=== PATIENT | female | born 1950 | race Caucasian/White ===

== ENCOUNTER → 2024-03-14 09:23 | Outpatient (REF) | payer OTHER, SELFPAY | LOC: RAD 09:23 | PROVIDERS: ATTENDING PHYSICIAN Physician Assistant Medical | DX: R06.02 Shortness of breath (principal); I82.501 Chronic embolism and thrombosis of unspecified deep veins of right lower extremity; I10 Essential (primary) hypertension | CPT/HCPCS: 93970 ==

== ENCOUNTER 2024-10-27 04:54 | Emergency (ER) | payer OTHER, SELFPAY ==
[2024-10-27 04:57] VITALS: BP 179/82
[2024-10-27 05:22] LABS: % Eosinophils 1.9 % (0-6); % Immature Granulocytes 0.3 % (0-0.5); % Lymphocytes 37.2 % (20.5-51.1); % Monocytes 9.1 % (1.7-9.3); % Neutrophils 50.5 % (42.2-75.2); Absolute Basophils 0.1 10^3/uL (0-0.2); Absolute Eosinophils 0.1 10^3/uL (0-0.7); Absolute Lymphocytes 2.5 10^3/uL (1.2-3.4); Absolute Monocytes 0.6 10^3/uL (0.1-0.6); Absolute Neutrophils 3.4 10^3/uL (1.4-6.5); Hematocrit 40.1 % (37.0-47.0); Hemoglobin 13.9 g/dL (12.0-16.0); Mean Corp Hgb Conc. 34.7 g/dL (33.0-37.0); Mean Corpuscular Volume 92.2 fL (81.0-99.0); Mean Platelet Volume 9.4 fL (7.4-10.4); Nucleated Red Blood Cells % 0 %; Platelet Count 201 10^3/uL (130-400); Red Blood Cell Count 4.35 10^6/uL (4.20-5.40); Red Cell Dist. Width 12.6 % (11.5-14.5); White Blood Cell Count 6.7 10^3/uL (4.8-10.8)
[2024-10-27 05:50] LABS: ALT (SGPT) 15 U/L (0-35); AST (SGOT) 20 U/L (14-36); Albumin 4.1 g/dl (3.5-5.0); Alkaline Phosphatase 88 U/L (38-126); Blood Urea Nitrogen 21 mg/dl (7-17); Calcium 10.3 mg/dl (8.4-10.2); Chloride 106 mmol/L (98-107); Lipase 79 U/L (23-300); Potassium 4.1 mmol/L (3.5-5.1); Sodium 139 mmol/L (135-145); Total Bilirubin 0.8 mg/dl (0.2-1.3); eGFR > 60.00
[2024-10-27 06:00] LABS: Carbon Dioxide 23 mmol/L (22-30); Glucose 122 mg/dl (70-99)
[2024-10-27 06:51] VITALS: BP 177/77
[2024-10-27 07:00] VITALS: BP 173/80
[2024-10-27 07:06] VITALS: BP 165/71
--- NOTE | 2024-10-27 07:30 | ED.GENMED ---
History of Present Illness
<ELLY Londono - Last Filed: 10/27/24 09:51>
General
Chief Complaint: Abdominal Pain
Source: patient
Exam Limitations: none
Time Seen by Provider: 10/27/24 07:10
History of Present Illness
History of Present Illness:
Patient is a 74 old female who presents to the ER complaining of upper abdominal pain. She reports since Wednesday for the past 4 days she has had upper abdominal pain. She has nauseous. She feels bloated and swollen. She has no appetite. She has
been moving her bowels normally. She has been urinating normally. She does have some burning in her epigastric area with this. She denies any history of reflux. 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 She
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 She is told in the past that she has had stage III kidney disease however has had CAT scans with IV contrast in the past and her machine set up operator is fine
with this. She has good kidney function on labs.
Phy Exam
<ELLY Londono - Last Filed: 10/27/24 09:51>
General Physical Exam
General Presentation: no apparent distress
General age: appears stated age
General Skin: warm and dry
General Habitus: obese
General Mental: alert
General Hydration: appears well hydrated
Cardiovascular Exam
Cardiovascular Exam: no murmur and normal peripheral pulses
Pulmonary Exam
Pulmonary Exam: lungs clear and no respiratory distress
Gastrointestinal Exam
Gastrointestinal Exam: soft and other (mild epigastric tenderness )
Neurological Exam
Neurological Exam: alert and oriented x3
Musculoskeletal Exam
Musculoskeletal Exam: full ROM
Skin Exam
Skin Exam: normal color and warm/dry
Psychiatric Exam
Psychiatric Exam: normal mood/affect
Course
<ELLY Londono - Last Filed: 10/27/24 09:51>
Orders/Labs/Results
Orders:
Orders
10/27/24 05:15
Complete Blood Count/With Diff Urgent
Comprehensive Metabolic Panel Urgent
Lipase Urgent
10/27/24 07:10
EKG [Electrocardiogram (*1)] Urgent
Reason for Study: Abdominal Pain
EKG- Treatment ONCE
10/27/24 07:31
Urinalysis Reflex To Culture Urgent
Date Specimen was Collected: 10/27/24
Time Specimen was Collected: 07:29
Urine Microscopic Reflex Cult Urgent
10/27/24 07:39
CT Abd/pelvis W Iv Cont Urgent
Comment:
Reason For Exam: abd pain /bloating/nausea
0.9% Sodium Chloride 1000 ml [Nss] 1,000 ml IV BOLUS
10/27/24 08:05
Lactic Acid Urgent
10/27/24 09:45
Amoxicillin 875 mg/Clav 125 mg [Augmentin 875 mg/125 mg] 1 tablet PO NOW STA
Abnormal Lab Results
10/27/24 10/27/24
05:15 07:31
MCH 32.0 H pg
(27.0-31.0)
BUN 21 H mg/dl
(7-17)
Glucose 122 H mg/dl
(70-99)
Calcium 10.3 H mg/dl
(8.4-10.2)
Urine Albumin (Reflex) 1+ A
(Neg - Trace)
10/27/24 05:15
10/27/24 05:15
Vital Signs
Initial and Last Documented VS:
Initial Vital Signs
Temp Pulse Resp BP Pulse Ox
98.4 F 93 20 179/82 97
10/27/24 04:57 10/27/24 04:57 10/27/24 04:57 10/27/24 04:57 10/27/24 04:57
Last Documented Vital Signs
Temp Pulse Resp BP Pulse Ox
98.4 F 72 23 164/74 96
10/27/24 04:57 10/27/24 09:15 10/27/24 09:15 10/27/24 09:09 10/27/24 09:15
Transmission Systems Operator consulted with Physician
Transmission Systems Operator consulted with physician?: Yes
Name of Physician Consulted: Leobardo
<Yasir Booth, DO - Last Filed: 10/27/24 09:49>
Orders/Labs/Results
Orders:
Orders
10/27/24 05:15
Complete Blood Count/With Diff Urgent
Comprehensive Metabolic Panel Urgent
Lipase Urgent
10/27/24 07:10
EKG [Electrocardiogram (*1)] Urgent
Reason for Study: Abdominal Pain
EKG- Treatment ONCE
10/27/24 07:31
Urinalysis Reflex To Culture Urgent
Date Specimen was Collected: 10/27/24
Time Specimen was Collected: 07:29
Urine Microscopic Reflex Cult Urgent
10/27/24 07:39
CT Abd/pelvis W Iv Cont Urgent
Comment:
Reason For Exam: abd pain /bloating/nausea
0.9% Sodium Chloride 1000 ml [Nss] 1,000 ml IV BOLUS
10/27/24 08:05
Lactic Acid Urgent
10/27/24 09:45
Amoxicillin 875 mg/Clav 125 mg [Augmentin 875 mg/125 mg] 1 tablet PO NOW STA
Abnormal Lab Results
10/27/24 10/27/24
05:15 07:31
MCH 32.0 H pg
(27.0-31.0)
BUN 21 H mg/dl
(7-17)
Glucose 122 H mg/dl
(70-99)
Calcium 10.3 H mg/dl
(8.4-10.2)
Urine Albumin (Reflex) 1+ A
(Neg - Trace)
10/27/24 05:15
10/27/24 05:15
Vital Signs
Initial and Last Documented VS:
Initial Vital Signs
Temp Pulse Resp BP Pulse Ox
98.4 F 93 20 179/82 97
10/27/24 04:57 10/27/24 04:57 10/27/24 04:57 10/27/24 04:57 10/27/24 04:57
Last Documented Vital Signs
Temp Pulse Resp BP Pulse Ox
98.4 F 72 23 164/74 96
10/27/24 04:57 10/27/24 09:15 10/27/24 09:15 10/27/24 09:09 10/27/24 09:15
<ELLY Londono - Last Filed: 10/27/24 09:51>
MDM/Problems Addressed
Differential Diagnosis Includes:
not limited to reflux less likely bile ductal stone, viral syndrome, colitis,
MDM/Problems Addressed:
As documented patient is a 74-year female who complains of upper abdominal bloating decreased appetite nausea. She has had this for the past several days. She presents awake alert no acute distress she is going away on a cruise in 2 weeks and
presented to the ER for evaluation. She denies any fever chills diarrhea. She does report she has' a problem with celiac artery.' But is not exactly sure what the problem is. She is afebrile nontoxic normal lactic normal labs. Very
nontoxic-appearing minimal epigastric tenderness
CAT scan shows mild wall thickening along the descending and proximal sigmoid colon favored represent mild colitis there is a 2.8 cm left adnexal cystic lesion. I did review this with patient she is aware of this and follows with oncology they are
just monitoring this but do not feel that it is cancerous.
Pt eval by DR Leobardo winn for d/c home.
<ELLY Londono - Last Filed: 10/27/24 09:51>
*Radiology
Radiology exam reviewed: radiology read reviewed (CAT scan shows mild wall thickening along the descending and proximal sigmoid colon favored to represent colitis incidental 2.8 cm left adnexal cystic lesion which will need follow-up)
*Pulse Oximetry
Patient hypoxic: no
*Critical Care Note
Total Time (30-74mins, 75-104mins- exclusive of procedures): Not Applicable
ED Attending Note
<ELLY Londono - Last Filed: 10/27/24 09:51>
-
Portions of this chart may have been created with voice recognition software.� Occasional wrong word or��sound alike� substitutions may have occurred due to the inherent limitations of voice recognition software.
<Yasir Booth DO - Last Filed: 10/27/24 09:49>
ED Attending Note
Patient seen and examined by attending physician: Yes
I performed the substantive portion of visit, reviewed & personally made and approve the management plan that is documented in note by myself or ANNI.: Yes
ED Attending Note:
I have seen and evaluated the patient with a [id number] encounter. I have spoken to the advance practicer provider and involved in the medical history, the physical exam, medical decision making.
Evaluation and management service: agree unless noted differently below.
Results interpretation: agree unless noted differently below.
Focused HPI: 74-year-old female presenting with vague abdominal pain. Symptoms are worse when she eats. Patient is more concerned that her symptoms could be related to celiac artery disease. Patient has had imaging the past showing stenosis of
the celiac artery.
Physical exam: Sitting in bed comfortably. Abdomen soft. No rebound
Medical Decision Making: CT shows evidence of mild colitis. Will start Augmentin and discussed the importance of GI follow-up. Although she is worried about this being related to her celiac artery, the colon is not supplied by the celiac artery.
Regardless, lactic acid within normal limits.
Discharge Plan
Departure
Patient Disposition: Home (Routine Discharge)
Date of Disposition: 10/27/24
Time of Disposition: 09:46
Patient with high blood pressure during this ER visit?: Yes
Condition: Fair
Covid-19: Not Applicable
Discharge Problem:
Colitis
Instructions: Colitis - Discharge instructions, BLOOD PRESSURE
Prescriptions:
New
amoxicillin-pot clavulanate 875-125 mg tablet
1 tab PO BID Qty: 14 0RF
Referrals:
Frank Marie CRNP [Family Provider] -
Activity Restrictions/Additional Instructions:
As discussed bland diet. A prescription for Augmentin was sent to pharmacy take as directed. Please follow closely with your family doctor and GI doctor for further reevaluation of your symptoms. As discussed your labs are unremarkable. Your CAT
scan does show some findings consistent with colitis. Return her to the if any worsening of symptoms. Continue to follow-up with your specialist for the adnexal cystic lesion. Return to the ER for any worsening of symptoms include increased pain
nausea vomiting fever chills
Interventions
Interventions:
*Risk Screen - Suicide Last Done: 10/27/24 04:57
*General Assessment Last Done: 10/27/24 07:33
*ED COVID-19 Vaccine History Last Done: 10/27/24 07:33
BF-Fcabtt-Kvtnrkanek Assessment Last Done: 10/27/24 07:33
Discharge Date and Time
Print Language: GU[place]AL[place]
[2024-10-27 08:25] LABS: Urine Albumin 1+ (Neg - Trace); Urine Bilirubin Negative (Negative); Urine Character Clear (Clear); Urine Color Yellow; Urine Glucose Negative (Negative); Urine Ketone Negative (Negative); Urine Leukocyte Negative (Negative); Urine Nitrite Negative (Negative); Urine Occult Blood Negative (Negative); Urine Specific Gravity 1.015 (<1.030); Urine Urobilinogen Negative (Neg - 1+)
[2024-10-27 08:56] LABS: Lactic Acid 0.9 mmol/L (0.7-2.0)
[2024-10-27 09:09] VITALS: BP 164/74
[2024-10-27] MEDS: NSS 1000 IV (09:15)
[2024-10-27 10:08] LABS: Urine Amorphous Seen
[2024-10-27 10:09] LABS: Urine Red Blood Cell 0-2 /HPF (0-2); Urine White Cell 0-2 /HPF (0-5)
== END 2024-10-27 10:12 | disposition home or self-care (01) ==
LOC: EMR 04:54
PROVIDERS: Nurse Practitioner; Student in an Organized Health Care Education/Training Program; EMERGENCY PHYSICIAN Student in an Organized Health Care Education/Training Program; FAMILY PHYSICIAN Nurse Practitioner Family
DX: K52.9 Noninfective gastroenteritis and colitis, unspecified (principal); E66.9 Obesity, unspecified
CPT/HCPCS: 99284; 96360; 74177; 80053; 81003; 81015; 83605; 83690; 85025; 93005; Q9967

== ENCOUNTER 2025-01-25 06:30 | Day surgery (SDC) | payer OTHER, SELFPAY | END 2025-01-25 14:50 | disposition home or self-care (01) | LOC: GI 06:30 | PROVIDERS: ATTENDING PHYSICIAN Internal Medicine Gastroenterology | DX: R12 Heartburn (principal); K31.89 Other diseases of stomach and duodenum; K29.50 Unspecified chronic gastritis without bleeding | CPT/HCPCS: 43239; 88305; 88342 ==

== ENCOUNTER 2025-07-09 21:15 | Emergency (ER) | payer OTHER, SELFPAY ==
[2025-07-09 21:18] VITALS: BP 190/92
[2025-07-09 23:15] VITALS: BP 132/53
[2025-07-09 23:27] LABS: Hematocrit 35.5 % (37.0-47.0); Hemoglobin 11.8 g/dL (12.0-16.0); Mean Corp Hgb Conc. 33.2 g/dL (33.0-37.0); Mean Corpuscular Volume 93.7 fL (81.0-99.0); Platelet Count 206 10^3/uL (130-400); Red Cell Dist. Width 12.7 % (11.5-14.5)
[2025-07-09 23:43] LABS: ALT (SGPT) 18 U/L (0-35); AST (SGOT) 20 U/L (14-36); Albumin 3.5 g/dl (3.5-5.0); Alkaline Phosphatase 73 U/L (38-126); Blood Urea Nitrogen 23 mg/dl (7-17); Calcium 9.3 mg/dl (8.4-10.2); Carbon Dioxide 28 mmol/L (22-30); Chloride 109 mmol/L (98-107); Glucose 110 mg/dl (70-99); Potassium 3.7 mmol/L (3.5-5.1); Sodium 139 mmol/L (135-145); Total Protein 6.2 g/dl (6.3-8.2); eGFR 52.08
[2025-07-10] VITALS: BP 134/63
--- NOTE | 2025-07-10 00:34 | ED.GENMED ---
History of Present Illness
General
Chief Complaint: DVT/Possible Blood Clot
Time Seen by Provider: 07/09/25 22:32
History of Present Illness
History of Present Illness:
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 She is
able to ambulate with slight discomfort. She also reports dyspnea on exertion that was noted upon walking into the ER. Denies chest pain, fever, chills, sweats. Did have some coughing a week ago but this is since resolved. No nausea vomiting or
diarrhea.
Review of Systems
Review of Systems
Allergies reviewed?: Yes
All Other Systems: ROS reviewed and negative except as documented in HPI and ROS
Phy Exam
Physical Exam
Physical Exam:
GEN: Well appearing, NAD, WDWN
HEENT: Oral mucosa moist, no scleral icterus
Cardiac: Regular rate and rhythm, no murmur
Lung: No respiratory distress, no tachypnea, lungs clear to auscultation bilaterally
MSK: Moderate edema of the right lower extremity from the knee to the ankle, nontender to palpation, no erythema. Strong right dorsalis pedis pulse
Skin: Good color, no pallor or jaundice, no rashes
Neuro: AO x3, moves all extremities freely
Psych: Calm, cooperative
Course
Orders/Labs/Results
Orders:
Orders
07/09/25 21:21
US Legs, Right [US Periph Venous LOWER Ext RT] Urgent
Comment:
Reason For Exam: RLE pain and swelling
07/09/25 22:51
CR Chest - 2 Views Urgent
Comment:
Reason For Exam: SOB/WEST
07/09/25 23:08
Complete Blood Count/No Diff Urgent
Comprehensive Metabolic Panel Urgent
NT-proBNP Urgent
07/10/25 00:10
CT Chest W/o Iv Contrast Urgent
Comment:
Reason For Exam: RLL abnormality on CXR
Abnormal Lab Results
07/09/25
23:08
RBC 3.79 L 10^6/uL
(4.20-5.40)
Hgb 11.8 L g/dL
(12.0-16.0)
Hct 35.5 L %
(37.0-47.0)
MCH 31.1 H pg
(27.0-31.0)
Chloride 109 H mmol/L
(98-107)
BUN 23 H mg/dl
(7-17)
Creatinine 1.1 H mg/dL
(0.6-1.0)
Glucose 110 H mg/dl
(70-99)
Total Protein 6.2 L g/dl
(6.3-8.2)
07/09/25 23:08
07/09/25 23:08
Vital Signs
Initial and Last Documented VS:
Initial Vital Signs
Temp Pulse Resp BP Pulse Ox
97.8 F 104 16 190/92 98
07/09/25 21:18 07/09/25 21:18 07/09/25 21:18 07/09/25 21:18 07/09/25 21:18
Last Documented Vital Signs
Temp Pulse Resp BP Pulse Ox
97.8 F 81 18 134/63 97
07/09/25 21:18 07/09/25 23:15 07/09/25 23:15 07/10/25 00:00 07/10/25 00:35
*Pulse Oximetry
SaO2: 97
Oxygen Mode of Delivery: Room air
ED Attending Note
-
Portions of this chart may have been created with voice recognition software.� Occasional wrong word or��sound alike� substitutions may have occurred due to the inherent limitations of voice recognition software.
Discharge Plan
Departure
Discharge Problem:
Venous insufficiency
Instructions: Swelling
Prescriptions:
No Action
amoxicillin-pot clavulanate 875-125 mg tablet
1 tab PO BID Qty: 14 0RF
Referrals:
Frank Marie CRNP [Family Provider, Family Practice]
Activity Restrictions/Additional Instructions:
Elevate legs and wrap using an FABIO wrap to diminish swelling
Interventions
Interventions:
*Risk Screen - Suicide Last Done: 07/09/25 21:18
*General Assessment Last Done: 07/09/25 23:04
*Neglect/Abuse Screening Last Done: 07/09/25 23:04
*ED- Fall Risk Assessment Last Done: 07/09/25 23:04
*ED COVID-19 Vaccine History Last Done: 07/09/25 23:04
*ED Influenza Vaccine History Last Done: 07/09/25 23:04
ED- Cardiac Assessment Last Done: 07/09/25 23:04
ED- Pulmonary Assessment Last Done: 07/09/25 23:04
ED-Peripheral Vascular Assessment Last Done: 07/09/25 23:04
ED-Skin Assessment Last Done: 07/09/25 23:04
Discharge Date and Time
Print Language: IRAQI
[2025-07-10 02:18] VITALS: BP 144/48
== END 2025-07-10 02:29 | disposition home or self-care (01) ==
LOC: EMR 21:15
PROVIDERS: Physician Assistant; EMERGENCY PHYSICIAN Emergency Medicine; FAMILY PHYSICIAN Nurse Practitioner Family
DX: I87.2 Venous insufficiency (chronic) (peripheral) (principal); R06.09 Other forms of dyspnea; Z86.718 Personal history of other venous thrombosis and embolism; Z79.01 Long term (current) use of anticoagulants
CPT/HCPCS: 99284; 71046; 71250; 80053; 83880; 85027; 93971